=== PATIENT | female | born 1935 | race Native Hawaiian/Other Pacific Islander ===

== ENCOUNTER 2017-07-06 12:11 | Emergency (ER) | payer OTHER ==
[2017-07-06 12:12] VITALS: BMI 23.9
[2017-07-06 12:19] VITALS: BP 126/55; PULSE 70; RESP 16; TEMP 97.9; O2SAT 96
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
--- NOTE | 2017-07-06 15:05 | RAD ---
PROCEDURE: Left Knee Radiographs. HISTORY: Pain. COMPARISON: None. FINDINGS: BONES: No evidence of acute displaced fracture nor dislocation. The osseous structures appear intact. No cortical destructive changes. JOINTS: Joint spaces are relatively preserved. No significant osteoarthritis. JOINT EFFUSION: Suspect trace suprapatellar joint effusion. OTHER FINDINGS: None. IMPRESSION: No evidence of acute displaced fracture nor dislocation. Suspect trace suprapatellar joint effusion
== END 2017-07-06 14:03 | disposition home or self-care (01) ==
LOC: H.ER 12:11
DX: M25.562 Pain in left knee (principal); S09.90XA Unspecified injury of head, initial encounter; V49.50XA Passenger injured in collision with unspecified motor vehicles in traffic accident, initial encounter